=== PATIENT | female | born 1945 | race Caucasian/White ===

== ENCOUNTER → 2017-05-02 | Outpatient (CLI) | payer OTHER ==
[~2017-05-02] MED LIST: ACETAMINOPHN-T1 EACH PO; ALLOPURINOL 30300 M2 PO; AMOXICILLIN250 MG PO; ASPIR-LOW81 MG PO; ASPIRIN325 PO; BENADRYL25 MG PO; CIPRO250 M2 PO; CIPROFLOXACIN500 M1 PO; CRANBERRY400 MG PO; CVS FISH OIL 11 EAC2 PO; CVS FISH OIL 11 EAC3 PO; DEX4 GLUCOSE1 EACH PO; DIAZEPAM 2MG TAB2 MG PO; DILTIAZEM ER180 M1 PO; DILTIAZEM ER180 MG PO; DILTIAZEM ER240 MG PO; DILTIAZEM ER360 MG PO; DIPHENHYDRAMINE25 M3 PO; GLUCAGEN1 MG IM; GLUCOPHAGE XR500 MG PO; GLUCOPHAGE500 MG PO; GLUCOSE GEL38 GM PO; KEFLEX500 MG PO; LIPITOR10 MG PO; LOSARTAN-HCTZ1 EAC2 PO; MECLIZINE HCL12.5 MG PO; MELOXICAM7.5 MG PO; MICARDIS HCT 81 EACH PO; OMEGA-31000 MG PO; PLAVIX 75 MG TA75 M1 PO; PREDNISONE 20 M20 MG PO; SIMVASTATIN40 MG PO; SPIRIVA INH; TRANSDERM-SCO1 PATC1 TRANSDERM; TYLENOL325 MG PO; VALIUM2 MG PO; [UNRECOGNIZED DRUG - OTHER] PO; [UNRECOGNIZED DRUG - OTHER] PO; [UNRECOGNIZED DRUG - OTHER] PO; [UNRECOGNIZED DRUG - REMARK] PO
== END ==
LOC: RAD 04-26 01:35
DX: N63 Unspecified lump in breast (principal)

== ENCOUNTER → 2018-05-30 | Outpatient (CLI) | payer OTHER | LOC: RAD 15:01 | DX: Z12.31 Encounter for screening mammogram for malignant neoplasm of breast (principal) ==

== ENCOUNTER → 2019-05-31 | Outpatient (CLI) | payer OTHER | LOC: RAD 01:31 | DX: Z12.31 Encounter for screening mammogram for malignant neoplasm of breast (principal) ==

== ENCOUNTER → 2020-10-07 | Outpatient (CLI) | payer OTHER | LOC: BC 12:24 | PROVIDERS: ATTEND Nurse Practitioner | DX: N63.41 Unspecified lump in right breast, subareolar (principal) ==

== ENCOUNTER 2021-05-29 13:11 | Inpatient (IN) | payer OTHER ==
[~2021-05-29] VITALS: Ht 167.6 cm; Wt 83.9 kg
--- NOTE | ~2021-05-29 | HC ---
[facility] [place] [address] CONSULTATION Name: TIM MCKEON Room #: 204-P ADM IN M.R.#: [id number] Admission: 05/29/21 Attend Phys: Abe Felton MD Discharge: Date of : 41 Report #: [id number] THIS REPORT FOR: cc: Yessenia Crowe Beth RNP Smithson, David G. MD ~ DATE OF SERVICE: 06/01/2021 HISTORY OF PRESENT ILLNESS: ____ mental status changes with shingles V1 and was noted to have a lpf-QJ-fybildabo DE with atrial fibrillation and SVT. She also was noted to have renal insufficiency. She has premorbid diabetes mellitus type 2 and does have premorbid dementia. Cardiology has been involved. She was given IV diltiazem and amiodarone. She was refusing some of her p.o. medications with her dementia and spitting them out. Appeared to be doing better with that today. She is adamant regarding returning back home. We are seeing her again in Rehabilitation Medicine consultation. PAST MEDICAL HISTORY: Includes dementia, history of hypertension, gout, pfq-uepsswi-bjskfckau diabetes mellitus, left cerebellar infarct, right temporal meningioma. HABITS: Post tobacco use in the past. MEDICATIONS: Please see the full medication listing. SOCIAL HISTORY: Lives alone in house, used a 4-wheeled walker, has an involved daughter. REVIEW OF SYSTEMS: No current complaints of chest pain, shortness of breath, or abdominal discomfort. PHYSICAL EXAMINATION: GENERAL: A 76-year-old white female in no obvious distress. VITAL SIGNS: Last recorded temperature 36.1, pulse 89, respirations 18, blood pressure 143/53. NEUROLOGIC: The patient is alert. She does have significant rash of her face consistent with the shingles. Facies otherwise appeared symmetric. She knew the place, although she was incorrect regarding the year. She does follow basic 1-step commands. Functional range of motion of both upper extremities, strength is grade 4-/5. Lower extremities, no focal calf swelling. Functional range of motion, strength is grade 4-/5. She does need assistance with basic functional mobility skills with sit to stand mod assist, could stand with mod assist with a front-wheeled walker for upper extremities support, but was leaning posteriorly. Was unable to do OT today because of a reoccurrence of AFib with rapid ventricular rate with heart rates in the 130s to 170s. [address] [address] CONSULTATION Name: TIM MCKEON Room #: 204-P ADM IN .R.#: [id number] Admission: 05/29/21 Attend Phys: Abe Felton MD Discharge: Date of : 43 Report #: [id number] ASSESSMENT: A 76-year-old female with the following problem list: 1. Generalized weakness and debilitation. 2. Anx-QT-cazmvvcsa myocardial infarction. 3. Paroxysmal atrial fibrillation with supraventricular tachycardia. 4. Dementia. 5. Shingles V1. 6. Prior left cerebellar infarct. 7. Prior right temporal meningioma. PLAN: I do not see unfortunately the patient would meet criteria for an acute in-hospital inpatient rehabilitation stay. Dementia is significantly limiting factor here. Note ____ discussion of possible comfort care at home with caregiver if there is someone available. I will be in agreement with this plan as she further medically stabilizes, even though the patient really wants to go back home. ____ probably be more of a [facility] facility stay, although I know the patient would not be keen on this. Thank you for asking us to assist in this patient's care. By: [phone] Jono Cheema MD /nt
--- NOTE | ~2021-05-29 | EMS ---
[address] [address] EMS Patient Care Report Name: TIM MCKEON Room #: 204-P ADM IN M.R.#: [id number] Admission: 05/29/21 Attend Phys: Abe Felton MD Discharge: Date of : 43 Report #: [id number] THIS REPORT FOR: //name// Report Transmitted: 06/01/2021 12:34 EMS Care Summary [place], [place]/[facility] Incident [id number] @ 05/29/2021 12:33 Incident Location [address] [place] [address] Patient TIM MCKEON Female, 76 Years 1945 Patient Address [address] [place] [address] Patient History Dementia,Diabetes,Hypertension (HTN), Patient Allergies No known allergies, Patient Medications Metformin, Hydrochlorothiazide (Hctz), Lipitor, Aricept, Chief Complaint INCREASED DEMENTIA AND RASH ON FACE Disposition Transported No Lights/[place] [facility] Reason Sick Person Transported To [facility] Narrative UPON ARRIVAL WE FOUND OUR AGITATED AND UNCOOPERATIVE 76 YEAR OLD FEMALE PATIENT LAYING IN BED IN THE MASTER BEDROOM OF AN UNKEMPT RESIDENCE WITH HER DAUGHTER AND ALS P36 BY HER SIDE. THE PATIENT'S DAUGHTER STATES THE PATIENT HAS A HX OF DEMENTIA AND HER CONFUSION HAS PROGRESSIVELY WORSENED TO [place] [address] EMS Patient Care Report Name: TIM MCKEON Room #: 204-P [facility] IN .R.#: [id number] Admission: 05/29/21 Attend Phys: Abe Felton MD Discharge: Date of : 43 Report #: [id number] NO LONGER FEELS IT IS SAFE FOR THE PATIENT TO LIVE INDEPENDENTLY(PT NO LONGER CONSISTENTLY BATHS, EATS, OR TAKES MEDS). FAMILY STATES THEY ATTEMPTED TO GET THE PATIENT TO GO WITH THEM TO THE DOCTOR TODAY TO GET THE SHINGLES RASH ON HER FACE TREATED, BUT SHE BECAME AGITATED AND REFUSED TO GO BY POV. FAMILY THEN CALLED 911 AND REQUEST THE PATIENT BE TRANSPORTED TO [facility] FOR EVALUATION. Initial Vitals @12:52P: 111,R: 16,BP: 202/108,Pain: 0/10,GCS: 14,Glucose: 92,CO: 1,SpO2: 97,Revised Trauma: 12, @13:07P: 96,R: 16,BP: 200/108,Pain: 0/10,GCS: 14,SpO2: 97,Revised Trauma: 12, Assessments @12:43MENTAL:Confused,Place Oriented,Person Oriented,SKIN:HEENT:Eyes: Right Pupil: 4-mm,Eyes: Left Pupil: 4-mm,Head/Face: Other,Neck/Airway: No Abnormalities,LUNG SOUNDS:General: No Abnormalities,ABDOMEN:General: No Abnormalities,PELVIS//GI:No Abnormalities,EXTREMITIES:Left Arm: No Abnormalities,Right Arm: No Abnormalities,Left Leg: No Abnormalities,Right Leg: No Abnormalities,PULSE:Radial: 2+ Normal,NEURO:No Abnormalities, Impression Skin infection Procedures @12:43ALS AssessmentResponse: UnchangedSucceeded Timeline 12:30,Call Received 12:30,Dispatch Notified 12:33,Dispatched 12:34,En Route 12:41,On Scene 12:43,At Patient 12:43,ALS Assessment,Response: UnchangedSucceeded, 12:52,BP: 202/108 M,PULSE: 111,RR: 16 R,SPO2: 97 Ox,ETCO2: ,B,PAIN: 0,GCS: 14, 12:55,Depart Scene 13:06,At Destination 13:07,BP: 200/108 M,PULSE: 96,RR: 16 R,SPO2: 97 Ox,ETCO2: ,BG: ,PAIN: 0,GCS: 14, 13:24,Call Closed Disclaimer v1.1 Copyright 2020 [employer] This EMS Care Summary contains data elements from the applicable legal record (which may be displayed differently). It is designed to provide pertinent information for the following purposes: continuity of care, clinical quality, [address] [address] EMS Patient Care Report Name: TIM MCKEON Room #: 204-P [facility] IN M.R.#: [id number] Admission: 05/29/21 Attend Phys: Abe Felton MD Discharge: Date of : 43 Report #: [id number] and state data reporting. The complete legal record is available to ED staff and administrators of the receiving hospital in [facility]'s Patient Tracker. All data is provided "as is."
[2021-05-29 13:12] VITALS: BP 175/146
[2021-05-29] MEDS ORDERED: LOSARTAN POTAS100 MG PO (13:22)
[2021-05-29] MEDS ORDERED: ARICEPT10 M1 PO (13:23)
[2021-05-29] MEDS ORDERED: NAMENDA 5 MG TAB5 M1 PO (13:24)
[2021-05-29 13:59] LABS: HEMATOCRIT 47.3 % (37.0-47.0); HEMOGLOBIN 15.1 gm/dL (12.0-15.0); MCH 26.6 pg (26.0-34.0); MCHC 31.9 g/dL (28.0-37.0); MCV 83.5 fL (80.0-100.0); RBC 5.66 mil/uL (4.20-5.00); RDW 15.3 % (10.5-14.5); WBC 6.6 thou/uL (4.0-11.0)
[2021-05-29 14:07] LABS: ANION GAP 14 mmol/L (7-16); BUN 26 mg/dL (7-18); CALCIUM 10.8 mg/dL (8.5-10.1); CHLORIDE 102 mmol/L (98-107); CO2 22 mmol/L (21-32); CREATININE 1.9 mg/dL (0.6-1.0); GLUCOSE 110 mg/dL (74-106); POTASSIUM 4.7 mmol/L (3.5-5.1); SODIUM 138 mmol/L (136-145)
[2021-05-29 14:17] LABS: ALBUMIN 3.6 g/dL (3.4-5.0); MAGNESIUM 2.1 mg/dL (1.8-2.4); PHOSPHORUS 3.9 mg/dL (2.6-4.7); SALICYLATE < 2.8 mg/dL (2.8-20.0); SGOT 25 U/L (15-37); SGPT 25 U/L (14-59); TOTAL BILIRUBIN 0.6 mg/dL (0.2-1.0); TOTAL PROTEIN 7.1 g/dL (6.4-8.2)
[2021-05-29 15:06] LABS: URINE BLOOD 1+ (Negative); URINE CLARITY CLOUDY; URINE COLOR YELLOW; URINE GLUCOSE-RANDOM* NEGATIVE (Negative); URINE KETONES 2+ (Negative); URINE LEUKOCYTES-REFLEX 1+ (Negative); URINE NITRITE-REFLEX NEGATIVE (Negative); URINE PROTEIN (DIPSTICK) 2+ (Negative); URINE SPECIFIC GRAVITY >= 1.030 (1.005-1.035); URINE UROBILINOGEN 0.2 E.U./dl (0.2-1.0)
[2021-05-29 15:07] LABS: ICTOTEST (BILI CONFIRMATORY) Negative (Negative); URINE BILIRUBIN NEGATIVE (Negative)
[2021-05-29 15:14] LABS: SQUAMOUS 4-10 Moderate /LPF (0-3)
[2021-05-29 15:15] LABS: BACTERIA-REFLEX 1-9 Few /HPF (None Seen); CASTS None Seen /LPF (None Seen); CRYSTALS None Seen /LPF (None Seen); URINE RBC 1-2 Rare /HPF (NONE SEEN)
[2021-05-29 15:19] LABS: AMP/METHAMP Negative (Negative); BARBITURATES Negative (Negative); BENZODIAZEPINES Negative (Negative); COCAINE Negative (Negative); METHADONE Negative (Negative); OPIATES Negative (Negative); PCP Negative (Negative)
[2021-05-29 18:26] VITALS: BP 195/97
[2021-05-29 19:30] VITALS: BP 169/82
[2021-05-29 21:03] VITALS: BP 146/93
[2021-05-30 06:33] LABS: HEMATOCRIT 43.2 % (37.0-47.0); HEMOGLOBIN 14.1 gm/dL (12.0-15.0); MCH 27.2 pg (26.0-34.0); MCHC 32.6 g/dL (28.0-37.0); MCV 83.3 fL (80.0-100.0); RBC 5.18 mil/uL (4.20-5.00); WBC 7.8 thou/uL (4.0-11.0)
[2021-05-30 06:46] LABS: CALCIUM 10.2 mg/dL (8.5-10.1); CREATININE 1.6 mg/dL (0.6-1.0); POTASSIUM 3.9 mmol/L (3.5-5.1)
--- NOTE | 2021-05-30 08:03 | NUR ---
05/29/21 Arrived on the floor from [facility] accompanied by x1 staff. Comes from home with a HX of dementia. Noncompliant with medications at home. HX of HTN, Gout L Cerebellar infarct - TIA, R Temporal Meningioma, High Cholesteral, DEVI Hernia Repair, Umbilical Hernia Repair, Colonoscopy. Oral surgery, Maxillary Extractions for upper dentures. Rt Breast BX - Cancer, Hysterectomy. IV site R antecubital is C/D/I without R/S/I. Fall risk with a 70 Patel score. High fall risk with recent falls reported. Physician activity order to Ambulate in Hallways. Latex allergy reported. VS @2103 146/93 105 20 97.2F 94% on RA. Daughter called and reports that her Mom has not allowed her caregivers to shower her since mother's day and that "she will need something for anxiety and irritation, like Valium". New order obtained for Haldol 2mg which was given crushed in pudding. Patient was generally uncooperative and resistant to care, with much reassurance, allowed labs to be drawn. Has a red area with puss blisters around the right eye. Antiviral provided. Incontinent of bladder, and unable to use the bed whiteside. Bed in low position, bed alarm set, will continue to monitor for safety and comfort as per unit protocol, call light within reach.
--- NOTE | 2021-05-30 09:43 | EKG ---
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: : 1945 Requested By: Marvel Graves Order Number: [id number] MD: Jacques Lozada Measurements Intervals [place] Rate: 87 P: 50 MN: 145 QRS: -18 QRSD: 92 T: 85 QT: 378 QTc: 455 Interpretive Statements Sinus rhythm Atrial premature complex Left atrial enlargement LVH with secondary repolarization abnormality Anterior Q waves, possibly due to LVH Compared to ECG 01/06/2016 06:51:34 Atrial premature complex(es) now present Atrial abnormality now present Left ventricular hypertrophy now present Early repolarization now present Q waves now present ST (T wave) deviation no longer present Electronically Signed On 05-30-2021 9:43:13 CDT by Jacques Lozada [email or web address] <ELECTRONICALLY SIGNED> By: Jacques Lozada MD, FACC 05/30/21 0943 1344 1344 Jacques Lozada MD, FAC /EPI
[2021-05-30 16:30] LABS: ABSOLUTE NEUTROPHILS 6.3 thou/uL (1.4-8.2); BASOPHILS 0.6 % (0.0-2.0); EOSINOPHILS 0.8 % (0.0-3.0); HEMATOCRIT 41.6 % (37.0-47.0); HEMOGLOBIN 13.6 gm/dL (12.0-15.0); LYMPHOCYTES 13.3 % (24.0-44.0); MCHC 32.8 g/dL (28.0-37.0); MCV 82.4 fL (80.0-100.0); MONOCYTES 12.3 % (1.0-8.0); PLATELET COUNT 310 thou/uL (150-400); RBC 5.04 mil/uL (4.20-5.00); WBC 8.6 thou/uL (4.0-11.0)
[2021-05-30 16:55] LABS: ALBUMIN 2.9 g/dL (3.4-5.0); CALCIUM 9.7 mg/dL (8.5-10.1); CREATININE 1.5 mg/dL (0.6-1.0); MAGNESIUM 1.9 mg/dL (1.8-2.4); POTASSIUM 3.8 mmol/L (3.5-5.1); TOTAL BILIRUBIN 0.4 mg/dL (0.2-1.0); TOTAL PROTEIN 6.6 g/dL (6.4-8.2)
--- NOTE | 2021-05-30 16:56 | NUR ---
Pt. had tachycardia so GLOBAL IMPLEMENTATION MANAGER was initiated-See flowshhet
--- NOTE | 2021-05-30 17:31 | NUR ---
ASSUMED CARE OF PT AT 0700. AT THAT TIME INTEGRATION CONSULTANT RN INFORMED MY PT HAS BEEN NONCOMPLAIANT AND REFUSING ALMOST EVERYTHING. PT ALSO RECEIVED A DOSE OF HALDOL LAST PM THAT HAS HAD HER DROWSY THROUGHOUT THE ENTIRETY OF THE DAY. DURING THE DAY PT REFUSED ALL CARE ADAMANTLY EVEN AFTER ASSISTANCE FROM DAUGHTER, EDUCATION, AND REASSURANCE. DID NOT TAKE ANY ORAL MEDS, SPIT THEM OUT EVEN IN PUDDING--INCLUDING HER DILTIAZEM. NOTIFIED MD OF REFUSALS WHEN SHE ASSESSED ON MORNING ROUNDS. LATER IN AFTERNOON ATTEMPTED TO GET VITALS AGAIN. AT AROUND 1530, PT WAS FOUND TO HAVE A HR OF 160+ SUSTAINED. VITALS AT THAT TIME WERE 129/86, SUGAR 96, BLADDER WITH LESS THAN 200, OXYGEN 92% ON ROOM AIR, WITH NO OTHER SYMPTOMS. PT RYTHM WAS SINUS TACH CONFIRMED BY EKG. RAPID RESPONSE WAS CALLED AND MD ACEVEDO ORDERED 5MG IV DILTIAZEM BOLUS SLOWLY. INJECTION GIVEN AND TRANSFER TO CCU WAS INITIATED. DROPPED PT OFF AND GAVE FULL REPORT TO CCU RN, WITH MD ACEVEDO PRESENT TO ADD ON THAT SHE HAD NOTIFIED FAMILY OF EVENTS.
--- NOTE | 2021-05-30 19:30 | NUR ---
ASSUMED CARE OF PT FROM DAY SHIFT RN , UPON ARRRIVAL TO ROOM PT RESTING IN BED ,EDITOR DICTIONARY SHOWS AFIB WITH HR 160 CARDIZEM GTT @ 15 MG /HOUR BP 168/87, WATERWORKS SUPERVISOR LAURA AT BEDISDE AND SLATE PICKER AT BEDSIDE , CARDIOLOGY CALLED AMIODARONE GTT STARTED. HEART RATE DECREASED TO 90-LOW 100 AFIB. PT REMAIN AGITATED WHEN SIMTULATED BY TOUCH. WILL OPEN EYES BUT WILL NOTE FOLLOW COMMANDS. WILL CONINTUE WITH CURRENT POC AND WILL REPORT CHANGES OR ABNORMAL FINDINGS.
[2021-05-30 19:36] VITALS: BP 159/74
--- NOTE | 2021-05-30 20:08 | NUR ---
Pt transferred to unit at 1630 after SENIOR IT ARCHITECT called for tachycardia. Pt oriented to self. HR in the 160s. Cardiology paged & orders for cardiazem drip received. Started pt on 5mg and titrated up to 15mg, pt rate controlled & titrated back down. Pt incontinent of bowel & bladder. Pt refusing all care, unable to obtain 2nd EKG & place franklin d/t pt agitation. Dr Zepeda notified.
[2021-05-31 03:43] VITALS: BP 151/118
[2021-05-31 03:47] LABS: ABSOLUTE NEUTROPHILS 6.1 thou/uL (1.4-8.2); BASOPHILS 0.3 % (0.0-2.0); EOSINOPHILS 2.2 % (0.0-3.0); HEMATOCRIT 41.9 % (37.0-47.0); HEMOGLOBIN 13.6 gm/dL (12.0-15.0); LYMPHOCYTES 12.5 % (24.0-44.0); MCHC 32.4 g/dL (28.0-37.0); MCV 83.2 fL (80.0-100.0); MONOCYTES 9.9 % (1.0-8.0); PLATELET COUNT 287 thou/uL (150-400); POLYS 75.1 % (36.0-66.0); RBC 5.04 mil/uL (4.20-5.00); RDW 14.9 % (10.5-14.5); WBC 8.1 thou/uL (4.0-11.0)
[2021-05-31 03:53] LABS: INR 1.04; PROTIME 11.3 Seconds (10.5-12.1)
[2021-05-31 04:34] LABS: ALBUMIN 2.8 g/dL (3.4-5.0); CALCIUM 9.5 mg/dL (8.5-10.1); CREATININE 1.4 mg/dL (0.6-1.0); MAGNESIUM 1.9 mg/dL (1.8-2.4); PHOSPHORUS 2.7 mg/dL (2.5-4.9); POTASSIUM 3.9 mmol/L (3.5-5.1); TOTAL BILIRUBIN 0.4 mg/dL (0.2-1.0); TOTAL PROTEIN 6.2 g/dL (6.4-8.2)
[2021-05-31 04:50] LABS: CHOLESTEROL 180 mg/dL (<200); HDL CHOLESTEROL 25 mg/dL (>40); LDL CHOLESTEROL 116 mg/dL (<100); TC:HDL 7.2 Ratio (Not establshd); TRIGLYCERIDE 195 mg/dL (<150); VLDL 39 mg/dL (<40)
[2021-05-31 04:52] LABS: SERUM ASSESSMENT Clear
[2021-05-31 07:35] VITALS: BP 155/94
--- NOTE | 2021-05-31 09:18 | NUR ---
SPOKE TO NOHEMY DIAZ AT THIS TIME AND THE PATIENT NOW HAS 2 PATENT PERIPHERAL IV LINES. SHE DOES NOT FEEL A PICC IS NECESSARY FOR THIS PATIENT. SHE WILL FOLLOW UP AND CALL IF A PERIPHERAL OR PICC IS NEEDED LATER TODAY.
--- NOTE | 2021-05-31 11:32 | EKG ---
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 Cloth: SG : 1945 Requested By: Abe Felton Order Number: [id number] MD: Jacques Lozada Measurements Intervals [place] Rate: 167 P: 0 CT: QRS: 5 QRSD: 84 T: 195 QT: 242 QTc: 404 Interpretive Statements Supraventricular tachycardia Abnormal R-wave progression, early transition Repolarization abnormality, prob rate related Compared to ECG 05/29/2021 13:44:12 Sinus rhythm no longer present Atrial premature complex(es) no longer present Atrial abnormality no longer present Left ventricular hypertrophy no longer present Q waves no longer present Electronically Signed On 05-31-2021 11:31:54 CDT by Jacques Lozada [email or web address] <ELECTRONICALLY SIGNED> By: Jacques Lozada MD, [facility] 05/31/21 1131 1620 1620 Jacques Lozada MD, [facility] /EPI
[2021-05-31 15:50] VITALS: BP 211/193
--- NOTE | 2021-05-31 18:06 | NUR ---
PATIENT CONTINUED TO REMOVE OXYGEN, TELEMETRY AND PERIPHERAL IVS THROUGHOUT THE DAY. NON-DIRECTABLE, ORIENTED X0. SHE WAS INCONTINENT X4 OF URINE, LARGE AMOUNTS. DILTIAZEM GTT TURNED OFF AT 1735, HR 60-98 IN A FIB. MORPHINE GIVEN ONCE FOR PAIN. REMAINED NPO PATIENT WAS ON AND OFF LETHARGIC THROUGHOUT THE DAY, COMBATIVE AT TIMES.
[2021-05-31 19:55] VITALS: BP 117/81
[2021-06-01 04:45] VITALS: BP 220/80
[2021-06-01 05:26] LABS: ABSOLUTE NEUTROPHILS 7.4 thou/uL (1.4-8.2); BASOPHILS 0.5 % (0.0-2.0); EOSINOPHILS 4.8 % (0.0-3.0); HEMATOCRIT 43.4 % (37.0-47.0); HEMOGLOBIN 14.6 gm/dL (12.0-15.0); LYMPHOCYTES 8.9 % (24.0-44.0); MCHC 33.6 g/dL (28.0-37.0); MCV 83.3 fL (80.0-100.0); MONOCYTES 7.9 % (1.0-8.0); PLATELET COUNT 256 thou/uL (150-400); POLYS 77.9 % (36.0-66.0); RBC 5.21 mil/uL (4.20-5.00); RDW 14.8 % (10.5-14.5); WBC 9.5 thou/uL (4.0-11.0)
[2021-06-01 05:58] LABS: ALBUMIN 2.7 g/dL (3.4-5.0); CALCIUM 9.4 mg/dL (8.5-10.1); CREATININE 1.1 mg/dL (0.6-1.0); MAGNESIUM 1.8 mg/dL (1.8-2.4); PHOSPHORUS 2.6 mg/dL (2.5-4.9); TOTAL BILIRUBIN 0.5 mg/dL (0.2-1.0); TOTAL PROTEIN 6.4 g/dL (6.4-8.2)
[2021-06-01 08:00] VITALS: BP 154/73
[2021-06-01 11:51] VITALS: BP 143/53
[2021-06-01] MEDS ORDERED: DILTIAZEM 24HR180 M1 PO (12:56)
[2021-06-01] MEDS ORDERED: PACERONE 200 M200 M1 PO (12:56)
[2021-06-01] MEDS ORDERED: COREG6.25 MG PO (12:56)
[2021-06-01] MEDS ORDERED: LIPITOR40 MG PO (12:56)
--- NOTE | 2021-06-01 13:00 | NUR ---
Case opened to follow for dc planning. Getter Operator attempted to visit with pt at bedside and introduce role of cm. Pt able to answer some questions but unable to have discussion about dc planning needs. She denies any needs at all and reports she lives alone, drives and manages all of her affairs. She is able to tell me where she is and what is going on with her. Dtrs Monique, Deborah and Ivyadilia are her dpoa's for health care and finances. Getter Operator spoke with Monique who indicates that she is at pt's home daily helping with pt's dog/IADL's,shopping(meal prep) and she has been managing her finances since last year. The pt has had a steady decline in her ability to manage her bills/followup care/ medications/ care for her dog and po intake. Dtr reports sign wt loss and increased problems with her memory. She no longer takes her dog out to potty and the home has become unkept and cluttered. Monique is there today taking out the carpet and arranging for van to be put in. She has not been able to take her medications and threw away the pill box the dtr setup for her. She does not cook and they have put signs up reminding her not to cook or drive. The pt has been resistent to retirement placement and idealy they would like to keep her in her home with her dog. They are open to hospice info visit and deny agency preference. Referral faxed and called to Esvin with [facility]. They will arrange a meeting with dtrs tomorrow. Pt is getting iv meds for her elev hr, shingles, and uti. The pt refuses to take pills. The family's goal is to get her home cleaned up and setup more supports to try and maintain the pt at home vs placement. PT/OT evals are in progress. The pt normally uses a rwalker at home and is able to transfer and gait around the home. Dtr is in and out several times daily but will need to increase support at home. They may need to consider private duty support as well. They do not feel pt will do well in a SNF even for rehab. The pt is not a candidate for 5N acute rehab. Will follow.
[2021-06-01] MEDS ORDERED: ELIQUIS2.5 MG PO (13:03)
--- NOTE | 2021-06-01 14:09 | 2DMMODE ---
[facility] [place] [address] 2 D/M-MODE ECHOCARDIOGRAM Name: TIM MCKEON Room #: 204-P ADM IN M.R.#: [id number] Admission: 05/29/21 Attend Phys: Abe Felton MD Discharge: Date of : 43 Report #: [id number] THIS REPORT FOR: cc: Yessenia Crowe Beth RNP Santiago, Patrick MD [facility] ~ APPROVED REPORT Study performed: 06/01/2021 12:43:56 EXAM: Comprehensive 2D, Doppler, and color-flow Echocardiogram Patient Location: Bedside Room #: 204 Status: routine BSA: 1.87 HR: 80 bpm BP: 159/73 mmHg Rhythm: Atrial Fibrillation Other Information Study Quality: Good Indications Afib. 2D Dimensions RVDd: 28.15 mm IVSd: 14.00 (7-11mm) LVOT Diam: 21.00 (18-24mm) LVDd: 44.00 mm PWd: 13.00 (7-11mm) LVDs: 34.40 (25-40mm) Left Atrium: 38.53 (27-40mm) Aortic Root: 32.49 mm Volumes Left Atrial Volume (Systole) Single Plane 4CH: 68.71 mL Single Plane 2CH: 81.74 mL LA ESV Index: 44.00 mL/m2 Aortic Valve AoV Peak Gaston.: 1.29 m/s AO Peak Gr.: 6.68 mmHg LVOT Max P.82 mmHg LVOT Max V: 0.84 m/s GERSON Vmax: 2.24 cm2 [facility] [address] [place] [address] 2 D/M-MODE ECHOCARDIOGRAM Name: TIM MCKEON Room #: 204-P [facility] IN [facility]#: [id number] Admission: 05/29/21 Attend Phys: Abe Felton MD Discharge: Date of : 41 Report #: [id number] Mitral Valve MV Decel. Time: 220.93 ms MV E Max Gaston.: 1.25 m/s Pulmonary Valve PV Peak Gaston.: 1.16 m/s PV Peak Gr.: 5.41 mmHg Tricuspid Valve TR Peak Gaston.: 2.12 m/s RAP Estimate: 5.00 mmHg TR Peak Gr.: 18.00 mmHg PA Pressure: 23.00 mmHg Left Ventricle The left ventricle is normal size. Mild concentric left ventricular hypertrophy. Left ventricular systolic function is normal. LVEF is 50-55%. This study is not technically sufficient to allow evaluation of the LV diastolic function due to atrial fibrillation. Right Ventricle The right ventricle is normal size. The right ventricular systolic function is normal. Atria Left atrium is moderately dilated. The right atrium size is normal. Aortic Valve The Aortic valve is moderately sclerotic. No aortic regurgitation is present. There is no aortic valvular stenosis. Mitral Valve Mitral valve leaflets are mildly thickened. Heavily calcified annulus. Mild mitral regurgitation. No evidence of mitral valve stenosis. Tricuspid Valve The tricuspid valve is normal in structure. Trace tricuspid regurgitation. Estimated PAP is 23mmHg. Pulmonic Valve The pulmonary valve is normal in structure. Trace pulmonic regurgitation. Great Vessels The aortic root is normal in size. The ascending aorta is normal in [facility] [address] [place] [address] 2 D/M-MODE ECHOCARDIOGRAM Name: TIM MCKEON Room #: 204-P ADM IN ..#: [id number] Admission: 05/29/21 Attend Phys: Abe Felton MD Discharge: Date of : 41 Report #: [id number] size. IVC is normal in size and collapses >50% with inspiration. Pericardium There is no pericardial effusion. <Conclusion> Normal left ventricle size with mild concentric hypertrophy Ejection fraction 50-55% Normal right ventricle size/function Left atrium moderately dilated Moderate aortic valve sclerosis without stenosis Moderate mitral annular calcification Mild mitral valve insufficiency Trace tricuspid valve insufficiency Pulmonary systolic pressure estimated at 23 mmHg No pericardial effusion Normal aortic root size. Study performed atrial fibrillation <ELECTRONICALLY SIGNED> By: Jacques Lozada MD, [facility] 06/01/21 1409 1409 1409 Jacques Lozada MD, FACC /INF
[2021-06-01 15:51] VITALS: BP 127/84
--- NOTE | 2021-06-01 18:30 | NUR ---
End shift note: Pt remained safe , no fall as all precautions applied, afebrile, VSS, still on uncontroled/cont Afib, gluc under controlled, Pt looks fatigued, sometimes uncooperative or follow commands when she desides to. refused dinner. However took her all her morning pills crushed in apple sauce. AT the time of this note , Pt is resting comfortably. See results of Echo and abd USD. PCO to be cont'd.
[2021-06-01 22:54] VITALS: BP 148/100
[2021-06-02] VITALS (8 sets, daily range): BP systolic 151–217; BP diastolic 68–103
--- NOTE | 2021-06-02 01:03 | NUR ---
PT IS ALERT TO SELF. CONFUSED ABOUT DATE, PLACE AND TIME. SHE TOOK HS MEDS, CRUSHED IN APPLE SAUCE. INCONTINENT OF BLADDER. STABLE ON /. AFIB CONTROLLED ON TELE, DENIES CHEST PAIN, WILL CONTINUE WITH POC.
--- NOTE | 2021-06-02 16:48 | NUR ---
PATIENT RESTING COMFORTABLY IN BED AT THIS TIME. PATIENT HAS BEEN SLEEPY THROUGHOUT THE DAY BUT RESPONDS TO VERBAL AND TACTILE STIMULI. PATIENT CONTINUES TO REFUSE ORAL MEDICATIONS AND BECOMES AGITATED WITH BLOOD GLUCOSE MONITORING. EDUCATED PATIENT ON IMPORTANCE OF TAKING ORAL MEDICATIONS WELL ORDERS TO MONITOR BLOOD GLUCOSE. PATIENT ENJOYS RASPBERRY YOGURT AND WILL CRUSH APPROPRIATE MEDICATIONS IN THE YOGURT. PATIENT DENIES ANY NEEDS AT THIS TIME. FALL PRECAUTIONS ARE IN PLACE, BED ALARM ON, CALL LIGHT WITHIN REACH.
--- NOTE | 2021-06-02 17:16 | NUR ---
Esvin from [facility] called and reports family signed consents for hospice care at home. They are delivering bed and equiptment to home in am. Informed to order oxygen as well. Sp with dtr Monique. She confirmed plan for home with hospice in am. She requests patient have a bath prior to home. She requests [facility] van for home. Verified address. She requests transport late as they are continuing to clean patients home. [email or web address] following
[2021-06-03 04:11] VITALS: BP 146/112
--- NOTE | 2021-06-03 04:50 | NUR ---
assume pt care at 1900, pt is agiated with cares, refused oral meds, bp elevated, hydralizine givenx1, pt sr on tele, pt noted of have tele off attempted multiple times to put the telemetry back on pt, pt became more agitated and screaming at staff, charge nurse and manager house aware and came into the room, was able to get a blood pressure on pt this morning after multiple attempts, pt wants to be left alone, frequent rounding made; all fall precautions in place; call light within reach
[2021-06-03 07:30] VITALS: BP 205/94
--- NOTE | 2021-06-03 09:44 | NUR ---
ASSUMED CARE OF PT @ 0700. PT IS RESTING IN BED AT TIME OF ASSESSMENT AND IS RESISTIVE BUT AGREES TO ASSESSMENT. PT IS NOT ON TELE AT THIS TIME INSIDE STEWARD/STEWARDESS REPORTED TO THIS NURSE THAT PT WAS REFUSING TO WEAR TELE. PT IS CONFUSED DURING ASSESSMENT, STATING "I JUST WANT TO GO HOME". PTS DAUGHTER IS HERE NOW HELPING PT WITH MEAL TRAY AND ENCOURAGING PT TO TAKE MEDICAITONS.PT IS COMPLIANT WITH MEDICATION AND IS SITTING ON SIDE OF BED AT THIS TIME, VISITING WITH FAMILY. WILL CONTINUE TO MONITOR.
[2021-06-03] MEDS ORDERED: ELIQUIS2.5 MG PO (11:26)
[2021-06-03] MEDS ORDERED: FAMCICLOVIR250 MG PO (11:26)
[2021-06-03 11:30] VITALS: BP 137/81
[2021-06-03] MEDS ORDERED: KEFLEX750 MG PO (11:32)
[2021-06-03 12:00] VITALS: BP 171/72
[2021-06-03 15:15] VITALS: BP 171/72
--- NOTE | 2021-06-03 15:38 | NUR ---
Spoke with dtr plan transport home via stretcher van from [facility] [phone] for [phone]. Faxed orders to [facility] and alerted of dc timeframe. no further needs
--- NOTE | 2021-06-03 18:36 | NUR ---
PT IS DISCHARGED HOME WITH HOSPICE VIA S AMBULANCE. PTS IV IS REMOVED AND PT HAS ALL BELONGINGS AT TIME OF DICHARGE. WRITTEN FOLLOW UP AND DISCHARGE INSTRUCTIONS GIVEN TO PT.
== END 2021-06-03 18:42 | disposition hospice, home (50) | DRG 871 ==
LOC: ER 13:11 → EROBS 17:58 → 2N 17:58 → 4W 19:32 → 2N 05-30 16:51
PROVIDERS: Emergency Medicine; Internal Medicine; ADMIT Hospitalist; ATTEND Hospitalist
DX: A41.9 Sepsis, unspecified organism (principal); I21.4 Non-ST elevation (NSTEMI) myocardial infarction; N39.0 Urinary tract infection, site not specified; N17.9 Acute kidney failure, unspecified; E87.2 Acidosis; I47.1 Supraventricular tachycardia; B02.9 Zoster without complications; K80.20 Calculus of gallbladder without cholecystitis without obstruction; M10.9 Gout, unspecified; E78.00 Pure hypercholesterolemia, unspecified; F03.90 Unspecified dementia, unspecified severity, without behavioral disturbance, psychotic disturbance, mood disturbance, and anxiety; Z60.2 Problems related to living alone; R53.81 Other malaise; I48.0 Paroxysmal atrial fibrillation; N18.30 Chronic kidney disease, stage 3 unspecified; Z66 Do not resuscitate; I12.9 Hypertensive chronic kidney disease with stage 1 through stage 4 chronic kidney disease, or unspecified chronic kidney disease; E78.5 Hyperlipidemia, unspecified; E11.22 Type 2 diabetes mellitus with diabetic chronic kidney disease; Z79.01 Long term (current) use of anticoagulants; Z86.73 Personal history of transient ischemic attack (TIA), and cerebral infarction without residual deficits; Z90.710 Acquired absence of both cervix and uterus; Z85.3 Personal history of malignant neoplasm of breast; Z88.8 Allergy status to other drugs, medicaments and biological substances; Z91.040 Latex allergy status; Z87.891 Personal history of nicotine dependence; Z79.899 Other long term (current) drug therapy
CPT/HCPCS: 10045; 10081

== ENCOUNTER 2021-06-09 12:05 | Emergency (ER) | payer OTHER ==
[~2021-06-09] VITALS: Ht 167.6 cm; Wt 77.1 kg
--- NOTE | ~2021-06-09 | EMS ---
[place] [address] EMS Patient Care Report Name: TIM MCKEON Room #: DEP [place]#: [id number] Admission: 06/09/21 Attend Phys: Discharge: 06/09/21 Date of : 41 Report #: [id number] THIS REPORT FOR: //name// Report Transmitted: 06/10/2021 12:36 EMS Care Summary [place], [place]/[facility] Incident [id number] @ 06/09/2021 11:22 Incident Location [address] [place] [address] Patient TIM MCKEON Female, 76 Years 1945 Patient Address [address] [place] [address] Patient History Dementia,Diabetes,Hypertension (HTN), Patient Allergies No known allergies, Patient Medications Aricept, Lipitor, Hydrochlorothiazide (Hctz), Metformin, Chief Complaint General malaise Disposition Transported No Lights/[place] Dispatch Reason Sick Person Transported To [facility] Narrative Dispatched to a private residence in regards to a sick. Upon arrival, I saw patient laying in bed in the right lateral recumbent position. Initial assessment revealed that patient was A&Ox4 and did not appear to be in respiratory distress. Patient's chief complaint was malaise for 2 [place] [address] EMS Patient Care Report Name: TIM MCKEON Room #: DEP [facility]#: [id number] Admission: 06/09/21 Attend Phys: Discharge: 06/09/21 Date of : 41 Report #: [id number] Daughter stated that patient was released from [facility] on Tuesday, and was hospitalized due to a UTI. Daughter also stated that patient has not been eating, or taking her medications because of nausea and vomiting. Physical assessment revealed that patient was pink warm and dry. Patient was carried to our cot inside the home. Patient was secured and was taken outside the residence and lifted into the ambulance. Treatment rendered was obtaining 2 sets of baseline vital signs including a blood glucose reading, established vascular access with a saline lock and administered Zofran. Patient was transported to [facility] and radio report was given en route. Patient care was transferred on arrival. . Initial Vitals @11:52P: 70,R: 16,BP: 175/63,Pain: 0/10,GCS: 15,CO: 4,SpO2: 96,Revised Trauma: 12, @11:42P: 72,R: 18,BP: 187/75,Pain: 0/10,GCS: 15,Glucose: 108,SpO2: 91,Revised Trauma: 12, Assessments @11:48MENTAL:Time Oriented,Person Oriented,Place Oriented,Event Oriented,SKIN:HEENT:LUNG SOUNDS:ABDOMEN:PELVIS//GI:EXTREMITIES:PULSE:NEURO:No Abnormalities, Impression Malaise Procedures @11:47ALS AssessmentResponse: UnchangedSucceeded@11:47Zofran - 4 Milligrams (mg) - Intravenous (IV)Response: Unchanged@11:47Saline Lock 10cc (18 ga) Site: Antecubital-LeftResponse: UnchangedSucceeded Timeline 11:21,Call Received 11:21,Dispatch Notified 11:22,Dispatched 11:23,En Route 11:27,On Scene 11:29,At Patient 11:42,BP: 187/75 M,PULSE: 72,RR: 18 R,SPO2: 91 Ox,ETCO2: ,B,PAIN: 0,GCS: 15, 11:47,ALS Assessment,Response: UnchangedSucceeded, 11:47,Saline Lock 10cc 18 ga Site: Antecubital-Left,Response: UnchangedSucceeded, 11:47,Zofran - 4 Milligrams (mg) - Intravenous (IV),Response: Unchanged 11:52,BP: 175/63 M,PULSE: 70,RR: 16 R,SPO2: 96 Ox,ETCO2: ,BG: ,PAIN: 0,GCS: 15, 11:52,Depart Scene 12:08,At Destination [address] [address] EMS Patient Care Report Name: TIM MCKEON Room #: [facility] JANEEN Asher#: [id number] Admission: 06/09/21 Attend Phys: Discharge: 06/09/21 Date of : 41 Report #: [id number] 12:08,Call Closed Disclaimer [email or web address] Copyright 2020 [employer] This EMS Care Summary contains data elements from the applicable legal record (which may be displayed differently). It is designed to provide pertinent information for the following purposes: continuity of care, clinical quality, and state data reporting. The complete legal record is available to ED staff and administrators of the receiving hospital in [employer]'s Patient Tracker. All data is provided "as is."
[~2021-06-09 12:05] MED LIST changes: +ARICEPT10 M1 PO; +COREG6.25 MG PO; +DILTIAZEM 24HR180 M1 PO; +ELIQUIS2.5 MG PO; +FAMCICLOVIR250 MG PO; +KEFLEX750 MG PO; +LIPITOR40 MG PO; +LOSARTAN POTAS100 MG PO; +NAMENDA 5 MG TAB5 M1 PO; +PACERONE 200 M200 M1 PO
[2021-06-09 12:28] LABS: ABSOLUTE NEUTROPHILS 6.3 thou/uL (1.4-8.2); BASOPHILS 0.5 % (0.0-2.0); EOSINOPHILS 2.5 % (0.0-3.0); HEMATOCRIT 41.2 % (37.0-47.0); HEMOGLOBIN 13.2 gm/dL (12.0-15.0); LYMPHOCYTES 14.3 % (24.0-44.0); MCH 26.4 pg (26.0-34.0); MCV 82.4 fL (80.0-100.0); MONOCYTES 7.3 % (1.0-8.0); PLATELET COUNT 324 thou/uL (150-400); POLYS 75.4 % (36.0-66.0); RBC 4.99 mil/uL (4.20-5.00); RDW 15.1 % (10.5-14.5); WBC 8.3 thou/uL (4.0-11.0)
[2021-06-09 12:37] LABS: CALCIUM 9.6 mg/dL (8.5-10.1); CREATININE 1.5 mg/dL (0.6-1.0); POTASSIUM 3.2 mmol/L (3.5-5.1)
[2021-06-09 12:47] LABS: ALBUMIN 2.9 g/dL (3.4-5.0); TOTAL BILIRUBIN 0.5 mg/dL (0.2-1.0); TOTAL PROTEIN 6.4 g/dL (6.4-8.2)
[2021-06-09 13:25] LABS: URINE BLOOD 1+ (Negative); URINE CLARITY CLEAR; URINE COLOR YELLOW; URINE GLUCOSE-RANDOM* NEGATIVE (Negative); URINE KETONES NEGATIVE (Negative); URINE LEUKOCYTES-REFLEX TRACE (Negative); URINE NITRITE-REFLEX NEGATIVE (Negative); URINE PROTEIN (DIPSTICK) 2+ (Negative); URINE SPECIFIC GRAVITY >= 1.030 (1.005-1.035); URINE UROBILINOGEN 0.2 E.U./dl (0.2-1.0)
[2021-06-09 13:27] LABS: ICTOTEST (BILI CONFIRMATORY) Negative (Negative); URINE BILIRUBIN NEGATIVE (Negative)
[2021-06-09 13:32] LABS: CASTS None Seen /LPF (None Seen); CRYSTALS None Seen /LPF (None Seen); SQUAMOUS 0-3 Few /LPF (0-3); URINE RBC 1-2 Rare /HPF (NONE SEEN); URINE WBC-REFLEX 0-5 Rare /HPF (0-5); YEAST-REFLEX Present (None Seen)
[2021-06-09] MEDS ORDERED: DIFLUCAN150 MG PO (14:59)
[2021-06-09] MEDS ORDERED: CIPRO250 M2 PO (14:59)
--- NOTE | 2021-06-09 15:34 | EKG ---
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 : 1945 Requested By: Joseph Madden Order Number: [id number] MD: Jacques Lozada Measurements Intervals [place] Rate: 65 P: 54 KS: 207 QRS: 10 QRSD: 106 T: 175 QT: 421 QTc: 438 Interpretive Statements Sinus rhythm Ventricular premature complex Consider left atrial enlargement LVH with secondary repolarization abnormality Anterior infarct, old Baseline wander in lead(s) I,aVR Compared to ECG 05/30/2021 16:20:28 Ventricular premature complex(es) now present Left ventricular hypertrophy now present Myocardial infarct finding now present Supraventricular tachycardia no longer present Electronically Signed On 06-09-2021 15:33:46 CDT by Jacques Lozada [email or web address] <ELECTRONICALLY SIGNED> By: Jacques Lozada MD, FACC 06/09/21 1533 1241 1241 Jacques Lozada MD, [facility] /EPI
[2021-06-09 15:55] VITALS: BP 179/65
== END 2021-06-09 15:55 | disposition home or self-care (01) ==
LOC: ER 12:05
PROVIDERS: Nurse Practitioner
DX: N39.0 Urinary tract infection, site not specified (principal); R11.2 Nausea with vomiting, unspecified; I10 Essential (primary) hypertension; E11.9 Type 2 diabetes mellitus without complications; E78.00 Pure hypercholesterolemia, unspecified; Z90.710 Acquired absence of both cervix and uterus; Z79.899 Other long term (current) drug therapy; Z87.891 Personal history of nicotine dependence; Z91.040 Latex allergy status; Z88.6 Allergy status to analgesic agent; Z91.048 Other nonmedicinal substance allergy status